=== PATIENT | female | born 1975 | race Caucasian/White ===

== ENCOUNTER 2022-09-07 17:57 | Emergency (ER) | payer OTHER ==
[2022-09-07 18:04] VITALS: BP 175/83
[2022-09-07 18:47] LABS: BASO% 0.3 % (0-3); EOS% 0.1 % (0-8); HEMATOCRIT 37.9 % (37.0-47.0); HEMOGLOBIN 12.1 g/dl (12.0-16.0); IMMATURE GRANULOCYTES 0.3 % (0.0-5.0); LYMPH% 8.7 % (15-41); MEAN CELL VOLUME 80.8 fL CALC (80.0-100.0); MEAN CORPUSCULAR HGB 25.8 pG CALC (26.0-32.0); MEAN CORPUSCULAR HGB CONC 31.9 g/dL CAL (32.0-36.0); MONO% 8.7 % (2-13); NEUT# 5.85 thou/uL (2.00-7.15); NEUT% 81.9 % (42-76); RED BLOOD COUNT 4.69 mill/uL (4.20-5.60); RED CELL DISTRI WIDTH 15.9 % (11.5-15.5)
[2022-09-07 18:57] LABS: ALBUMIN 4.4 g/dL (3.2-5.0); ALKALINE PHOSPHATASE 100 u/l (38-126); ANION GAP 9 (6-22 (CALC)); BILIRUBIN, TOTAL 0.1 mg/dL (0.0-1.4); BUN 8 mg/dL (7-17); BUN/CREATININE RATIO 12 (12-20 (CALC)); CARBON DIOXIDE 32 mmol/l (22-30); CHLORIDE 100 mmol/l (95-108); CREATININE 0.7 mg/dL (0.5-1.0); GFR FOR AFR.AMER. > 60 ML/MIN (>=60 (CALC)); GFR OTHER RACES > 60 ML/MIN (>=60 (CALC)); POTASSIUM 3.8 mmol/l (3.5-5.1); SGOT/AST 139 u/l (14-36); SODIUM 137 mmol/l (137-146); TOTAL PROTEIN 7.5 g/dL (6.3-8.2)
[2022-09-07 19:00] VITALS: BP 154/70
[2022-09-07 19:50] LABS: URINE BILIRUBIN - DIPSTICK NEGATIVE (NEGATIVE); URINE BLOOD DIPSTICK NEGATIVE (NEGATIVE); URINE COLOR YELLOW; URINE GLUCOSE - DIPSTICK NEGATIVE (NEGATIVE); URINE KETONE TRACE mg/dL (NEGATIVE); URINE LEUK ESTERASE NEGATIVE (NEGATIVE); URINE PROTEIN - DIPSTICK TRACE mg/dL (NEG-TRACE); URINE UROBILINOGEN - DIPSTICK 0.2 E.U./dL (0.2)
[2022-09-07 19:52] LABS: URINE NITRITE - DIPSTICK NEGATIVE (Negative)
[2022-09-07] MEDS ORDERED: MEDDOSEPAK PO (20:06)
[2022-09-07] MEDS ORDERED: ZPAK PO (20:06)
[2022-09-07] MEDS ORDERED: ULTRAM50 MG PO (20:06)
[2022-09-07 20:07] VITALS: BP 154/70
== END 2022-09-07 20:13 | disposition home or self-care (01) | DRG 153 ==
LOC: ED 17:57
PROVIDERS: Emergency Medicine
DX: J06.9 Acute upper respiratory infection, unspecified (principal); J44.9 Chronic obstructive pulmonary disease, unspecified; I10 Essential (primary) hypertension; F17.210 Nicotine dependence, cigarettes, uncomplicated

== ENCOUNTER 2024-09-08 18:40 | Emergency (ER) | payer OTHER ==
[~2024-09-08] VITALS: Ht 170.2 cm; Wt 74.8 kg
[~2024-09-08 18:40] MED LIST: MEDDOSEPAK PO; ULTRAM50 MG PO; ZPAK PO
[2024-09-08] MEDS ORDERED: oxyCODONE 5MG/ ACETAMINOPHEN 325MG TAB PO ONE (21:10)
[2024-09-08 21:47] VITALS: BP 136/79
== END 2024-09-08 21:47 | disposition home or self-care (01) | DRG 563 ==
LOC: ED 18:40
DX: S93.402A Sprain of unspecified ligament of left ankle, initial encounter (principal); I10 Essential (primary) hypertension; J44.9 Chronic obstructive pulmonary disease, unspecified; G62.9 Polyneuropathy, unspecified; W18.49XA Other slipping, tripping and stumbling without falling, initial encounter; Z72.0 Tobacco use